=== PATIENT | female | born 1955 | race Caucasian/White ===

== ENCOUNTER 2017-07-20 14:16 | Emergency (ER) | payer BC ==
[~2017-07-20] VITALS: Ht 160 cm; Wt 77.1 kg
[2017-07-20] MEDS ORDERED: PROBIOTIC ACID1 EAC2 PO (14:58)
[2017-07-20] MEDS ORDERED: CLINDAMYCIN HC300 MG PO (14:58)
--- NOTE | 2017-07-20 14:58 | Urgent Treatment Center Report ---
History of Present Issue Date/Time Seen by Provider 07/20/17 1440 Visit Reason Pt arrived:Walked Presenting Problem:PT STATES SHE HAD A TOOTH PULLED LAST WEEK AND NOW HER JAW AND GUMS ARE SWOLLEN AND PAINFUL Location if Accident: Onset of symptoms date/time:07/16/1703/27/900 or onset unknown for: Have you (or family members/close friends) recently traveled outside the [place]? N If Yes, where/when: Have you had exposure to infectious disease within the past month? TB? Other? Specify: State that she recently had a tooth pulled on the bottom right side and was given Amoxicillin States that the next day her right lower jaw area was sore and then she noticed like a "knot" and it continued to get bigger States that she took her last Amoxicillin 3 days ago and last night she put a warm compress on the area and was spitting out infection from where she had the tooth pulled. States that she thinks she has an abcess there History Medical History General Angina: No [place]: No Hypertension? Yes Hyperlipidemia? No CHF? No COPD? No Asthma? No Hernia? No CVA? No Seizures? No Diabetes? No UTI? No Stones? No GB Disease: No Hepatitis? No Cataracts? No Glaucoma? No MRSA? No TB? No Cancer? Yes Site: L. MASTECTOMY 1987 Immunization HX DT/Tetanus 5-10 YRS Flu NEVER Pneumonia NEVER Surgical Hx Previous Surgery?Y Mastectomy Tubal Ligation Plastic LIPOSUCTION HIPS Family History Family HX Diabetes Yes CAD No Hypertension Yes Hyperlipidemia No Cancer Yes TB No Social History Smoking Hx Smoker: Current Every Day Smoker Tobacco: Yes Type Cigarettes Packs/day < 1 Pack Alcohol Alcohol: No Review of Systems All Other Systems Reviewed and Negative ENT other (jaw abcess from dental work). Physical Exam Vital Signs Vital Signs Date Time Temp Pulse Resp B/P Pulse O2 O2 Flow FiO2 Ox Delivery Rate 07/20 1430 98.8 104 20 178/104 100 General Appearance normal appearance, WD/WN, no apparent distress Ear, Nose, Throat Large swollen area right lower jaw like that consistant with abcess , gums red, swollen inside mouth Respiratory Status Yes: trachea midline, chest symmetrical, non tender chest. No: respiratory distress. 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 No Departure Departure Time of Disposition 1453 Disposition DC Home or Self Care(routine) Clinical Impression Primary Impression: Abscess Condition STABLE Referrals Michael Alcaraz MD (Family): 2 Days-Call Office Follow up with Dr Alcaraz on Saturday if no improvement Patient Instructions Tooth Abscess Additional Instructions Take medication as prescribed Watch area and make sure that medication is working If you began to have a fever, so any signs of sepsis go straight to the emergency room Over the counter medication for pain Return if needed Discharge Counseling Counseled pt/family regarding diagnosis, medications/RX, home care, follow up needs Prescriptions Current Visit Scripts Clindamycin Hcl (Clindamycin 300MG) 300 MG PO QID #28 CAP Lactobacillus Acidophilus (Probiotic Acidophilus) 1 EACH PO DAILY #30 TAB at 4205
[2017-07-20 15:07] VITALS: BP 178/104
== END 2017-07-20 15:07 | disposition home or self-care (01) ==
LOC: UTC 14:16
DX: K04.7 Periapical abscess without sinus (principal); F17.210 Nicotine dependence, cigarettes, uncomplicated

== ENCOUNTER 2017-09-09 10:30 | Day surgery (SDC) | payer BC ==
[~2017-09-09 10:30] MED LIST: CLINDAMYCIN HC300 MG PO; PROBIOTIC ACID1 EAC2 PO
--- NOTE | 2017-09-09 11:58 | Operative Note ---
Colonoscopy ([facility]) Procedure date: 09/09/17 Date of : 57 Procedure:Colonoscopy Colonoscopy with cold snare polypectomy Indications: Mrs. Lozada is a 61-year-old female who is here for colonoscopy secondary to positive cologard fecal testing. She does state that her mother had colon cancer in her early 80s. This is her first colonoscopy. She reports no abdominal pain, weight loss, change in her bowel habits or rectal bleeding. Performing Provider: Mo Fragoso MD Referrring Provider: Cathie ALVARENGA Sedation: Fentanyl 100 mg IV/Versed 6 mg IV Procedure: Prior to the procedure, a history and physical exam was performed, and patient medications and allergies were reviewed. The risks and benefits of the procedure and the sedation options and risks were discussed with the patient. All questions were answered and informed consent was obtained. Patient identification and proposed procedure were verified by the physician and the nurse. The patient was placed in a left lateral decubitus position. Throughout the procedure, the patient's blood pressure, pulse, and oxygen saturations were monitored continuously. Findings: On digital rectal examination there was normal rectal tone. There were no external hemorrhoids. The colonoscope was introduced through the anal canal to the rectum and advanced to the cecum. The ileocecal valve and appendiceal orifice were identified. The scope was advanced a short distance into the ileum which appeared grossly normal. The scope was then withdrawn into the colon. The cecum, ascending, transverse, descending, sigmoid and rectum were grossly normal. There was a single 6-7 mm in the descending colon removed via cold snare polypectomy. Upon retroflexion within the rectum there were small grade 1 internal hemorrhoids. Impressions: 1. Descending colon polyp 2. Grade 1 internal hemorrhoids Recommendations: I will follow up the polyp pathology and recommend repeat colonoscopy again in 5 years based upon the patient's family history and polyp histology. I would encourage fiber supplementation on a long-term daily maintenance basis. Complications: None EBL (ml): 0 at 1157
[2017-09-09 15:19] VITALS: BP 170/82
[2017-10-04] MEDS ORDERED: LISINOPRIL40 MG PO (22:30)
[2017-10-04] MEDS ORDERED: METFORMIN 500M500 MG PO (22:31)
[2017-10-04] MEDS ORDERED: AMLO5TAB PO (22:31)
[2017-10-04] MEDS ORDERED: PREDNISONE 10MG10 MG PO (23:45)
[2017-10-04] MEDS ORDERED: NORCO 325 MG-51 TAB PO (23:45)
== END 2017-09-09 12:27 | disposition home or self-care (01) ==
LOC: SDC 10:30
PROVIDERS: Internal Medicine Gastroenterology
PROC: 0DBM8ZX Excision of Descending Colon, Via Natural or Artificial Opening Endoscopic, Diagnostic (ICD-10-PCS; principal; 2017-09-09 11:30)
DX: Z12.11 Encounter for screening for malignant neoplasm of colon (principal); D12.5 Benign neoplasm of sigmoid colon; K64.0 First degree hemorrhoids; Z80.0 Family history of malignant neoplasm of digestive organs

== ENCOUNTER → 2017-10-04 | Emergency (ER) | payer BC ==
[~2017-10-04] VITALS: Ht 160 cm; Wt 72.6 kg
[~2017-10-04] MED LIST changes: +AMLO5TAB PO; +LISINOPRIL40 MG PO; +METFORMIN 500M500 MG PO; +NORCO 325 MG-51 TAB PO; +PREDNISONE 10MG10 MG PO
--- OUTSIDE RECORDS SUMMARY | 2017-10-04 22:32 | External Medical Summary Rpt | CCD ---
Author Author [employer] Organization [employer] Address Unknown Phone Unavailable Purpose Continuity of Care Document - through 2016
--- OUTSIDE RECORDS SUMMARY | 2017-10-04 22:32 | External Medical Summary Rpt | CCD ---
Author Author , NATANAEL SANTOYO Address Unknown Phone [email or web address] Purpose Continuity of Care Document - 09-09-2017 through 2016 Results Labs Lab Lab Date Result Refere Interp Status Commen Order Detail nces retati t Range on Glucose capillary blood glucometer (09-09-2017 10:59) Glucose = 155 70-110 complet 017 mg/dl ed capilla 10:[address]
--- OUTSIDE RECORDS SUMMARY | 2017-10-04 22:32 | External Medical Summary Rpt | CCD ---
Author Author , NATANAEL SANTOYO Address Unknown Phone [email or web address] Purpose Continuity of Care Document - 09-09-2017 through 2016 Results Labs Lab Lab Date Result Refere Interp Status Commen Order Detail nces retati t Range on Glucose capillary blood glucometer (09-09-2017 10:59) Glucose = 155 70-110 complet 017 mg/dl ed capilla 10:[address]
--- OUTSIDE RECORDS SUMMARY | 2017-10-04 22:33 | External Medical Summary Rpt | CCD ---
Demographics Preferred Language Thai Marital Status Unknown Restorationism Affiliation Unknown Race Unknown Ethnic Group Unknown Author Author , NATANAEL SANTOYO Address Unknown Phone Immunization Unable to retrieve immunization data due to connection failure with Immunization Registry. Please try again later.
--- OUTSIDE RECORDS SUMMARY | 2017-10-04 22:33 | External Medical Summary Rpt | CCD ---
Demographics Preferred Language [place] Marital Status Unknown Church Affiliation Unknown Race Unknown Ethnic Group Unknown Author Author , NATANAEL SANTOYO Address Unknown Phone Immunization Unable to retrieve immunization data due to connection failure with Immunization Registry. Please try again later.
--- NOTE | 2017-10-04 23:31 | Emergency Room Report ---
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 N Clinical Suspician of Infection? N Mental Status: 1 - Regular (Normal Baseline) Sepsis Risk:Low Sepsis Risk Have you (or family members/close friends) recently traveled outside the [place]? N If Yes, where/when: Have you had exposure to infectious disease within the past month? N TB? Other? Specify: Comment The patient complains of a sciatica pain in her RIGHT posterior hip since last night. She says that she was shopping last night and twisted wrong and has hurt ever since then. She has had this in the past. Sometimes it will radiate already down her RIGHT leg, but does not radiate down her leg this time, it is more isolated over her RIGHT sacroiliac joint. She normally can treat it at home, but it is not improving this time with Tylenol, ibuprofen, and positioning. She is diabetic, blood sugar was checked a couple of days ago and was 150. No numbness, weakness, or bowel or bladder symptoms. ALLERGIES Coded Allergies: No Known Allergies (10/04/17) Home Medications Reported Medications Lisinopril (Lisinopril 40MG) 40 MG PO DAILY Amlodipine Besylate (Amlodipine) 5 MG PO DAILY METFORMIN HCL (Metformin 500MG) 500 MG PO BID History Medical History General Angina: No [place]: No Hypertension? Yes Hyperlipidemia? No CHF? No COPD? No Asthma? No Hernia? No CVA? No Seizures? No Diabetes? Yes Insulin Dependent: No Insulin Pump: No Home FSBS? Yes UTI? No Stones? No GB Disease: No Hepatitis? No Cataracts? No Glaucoma? No MRSA? No TB? No Cancer? Yes Site: L. MASTECTOMY 1987 Immunization Hx DT/Tetanus 5-10 YRS Flu NEVER Pneumonia NEVER Surgical Hx Previous Surgery?Y Mastectomy Tubal Ligation Plastic LIPOSUCTION HIPS Family History Family Hx Diabetes Yes CAD No Hypertension Yes Hyperlipidemia No Cancer Yes TB No Social History Smoking Hx Smoker: Current Every Day Smoker Tobacco: Yes Type Cigarettes Packs/day < 1 Pack Alcohol Alcohol: No Review of Systems All Other Systems Reviewed and Negative Constitutional denies fever Musculoskeletal back pain Psychiatric/Neurological denies numbness, denies weakness Physical Exam Vital Signs Vital Signs Date Time Temp Pulse Resp B/P Pulse O2 O2 Flow FiO2 Ox Delivery Rate 10/05 0002 98.5 80 18 168/86 97 10/04 2342 18 10/04 2220 97.7 76 18 150/89 97 General Appearance normal appearance Respiratory Status No: respiratory distress. Cardiovascular regular rate/rhythm, normal peripheral pulses Back tenderness over RIGHT sacroiliac joint. No vertebral column tenderness. Neurologic alert, no motor/sensory deficits Medical Decision Making LABS/Meds/Orders Pt receiving controlled substance in ED? Yes Kevin was queried for this patient? Yes Comment [id number] 0 rxs. Results/Orders Current Medication Orders Sig/Maurice Start time Last Medication Dose Route Stop Time Status Admin Acetaminophen/ 0 .STK-MED ONE 10/04 2347 DC Codeine Phosphate PO Acetaminophen/ 1 IVETTE ONCE ONE 10/045 DC 10/04 Codeine Phosphate PO 10/04 2346 2354 Hydrocodone Bitart/ 1 TAB ONCE ONE 10/045 DC 10/04 Acetaminophen PO 10/04 2346 2342 Prednisone 60 MG ONCE ONE 10/045 DC 10/04 PO 10/04 2346 2341 Hydrocodone Bitart/ 0 .STK-MED ONE 10/04 2342 DC Acetaminophen PO Prednisone 0 .STK-MED ONE 10/04 2342 DC .ROUTE Departure Departure Disposition DC Home or Self Care(routine) Clinical Impression Primary Impression: Low back pain with sciatica Qualifiers: Chronicity: acute Back pain laterality: right Sciatica laterality: sciatica of right side Qualified Code: M54.41 - Lumbago with sciatica, right side Condition STABLE Referrals Kieran HIDALGO,Michael (Family) Patient Instructions DI for Back Pain With Sciatica Additional Instructions Monitor your blood sugar. Call your physician if blood sugar greater than 300. Additional instructions for BACK PAIN: See your physician as soon as possible for further evaluation. Return immediately if back pain becomes intolerable, or if fever, numbness or weakness of your legs, loss of control of your bowels or bladder. Prescriptions Current Visit Scripts Prednisone (Prednisone 10MG) 10 MG PO DAILY #27 TAB 6 po on days 1-2, then decrease dose by 1 pill per day until gone HYDROCODONE/ACETAMINOPHEN ([place] 5-325 Tablet) 1 TAB PO Q6HP PRN pain #10 TAB ED Critical Care Critical Care No at 0106
[2017-10-05 00:02] VITALS: BP 168/86
== END ==
LOC: ER 22:09
DX: M54.41 Lumbago with sciatica, right side (principal); F17.210 Nicotine dependence, cigarettes, uncomplicated; E11.9 Type 2 diabetes mellitus without complications; I10 Essential (primary) hypertension